=== PATIENT | female | born 1995 | race Caucasian/White ===

== ENCOUNTER 2017-09-04 14:19 | Emergency (ER) | payer MEDICAID, OTHER ==
[~2017-09-04] VITALS: Wt 74.0 kg
[~2017-09-04 14:19] MED LIST: NO MEDS; PRENAT PO
--- NOTE | 2017-09-04 14:25 | ERD ---
ER Documentation Chief Complaint Chief Complaint HPI This is a 22-year-old female with no past medical history that presents to the emergency department as a code green after she was in labor and delivery waiting room and received some upsetting news. She was told by family members that her sister's baby who she was delivering had during . The patient became very tearful fell to the floor but did not hit her head and started shaking uncontrollably. Isma mcarthur was called and the patient was medially brought down to the emergency department for further evaluation. She was complaining of difficulty in breathing. She states she is not currently , has no allergies her past medical history. She denied any suicidal homicidal thoughts or ideations ROS All systems reviewed and are negative except as per history of present illness. Medications Home Meds Reported Medications Multivit/Min/Fol Ac/Iron/Pren* ( S*) 1 Tab Tab, 1 TAB PO DAILY, TAB 07/23/15 [No Meds] No Conflict Check 11/04/12 Allergies Allergies: Coded Allergies: No Known Allergy (Unverified , 07/24/15) PMhx/Soc History of Surgery: No Anesthesia Reaction: No Hx Neurological Disorder: Yes (seizures as a child) Hx Respiratory Disorders: No Hx Cardiac Disorders: No Hx Psychiatric Problems: No Hx Miscellaneous Medical Probl: No Hx Alcohol Use: No Hx Substance Use: No Hx Tobacco Use: No Physical Exam Physical Exam Constitutional:Well-developed. Well-nourished. She shaking, hyperventilating and appeared in acute distress. HEENT:Normocephalic. Atraumatic.Pupils were equal round reactive to light. Moist mucous membranes.No tonsillar exudates. Neck: No nuchal rigidity. No lymphadenopathy. No posterior cervical spine tenderness or step-offs. Respiratory: Tachypneic. Not using accessory muscles of respiration.Lungs were clear to auscultation bilaterally. No rhonchi. No rales. No wheezing. Cardiovascular: Regular rate regular rhythm.No murmurs. No rubs were appreciated.S1, S2 normal. Distal pulses are palpable 2+ bilaterally. GI: Abdomen was soft. Nontender. Non Distended. No pulsatile abdominal masses or bruits. No rebound. No guarding. Bowel sounds were present and normal. Muscle skeletal: Full range of motion of both the upper and lower extremities bilaterally.Normal muscle tone.No assymetrical calf tenderness or swelling. Skin: No petechia, no purpura. No lesions on the palms or the soles of the feet. No maculopapular rash. NEURO: Patient was alert, awake, orientated x3.No facial droop. Gait observed and normal with no ataxia. Patient had no suicidal homicidal thoughts or ideations but was crying and verbal de-escalation was able to calm the patient down with no focal neurological deficits. Procedures/MDM Is a very pleasant 22-year-old female presented to the emergency department with occluded green and appeared to be having an acute grief reaction. The patient was hyperventilating tachypneic and received p.o. Ativan. Afterwards the tachypnea and hyperventilation completely resolved. She denied any suicidal homicidal thoughts or ideations. She spoke with her social media marketer and stated she felt comfortable being discharged home at this time. I did not feel is necessary to obtain any ancillary laboratory work as the patient had no changes in her mental status or physical exam findings to suggest severe electrolyte abnormalities. The patient was discharged home in fair condition. They were instructed to return to the emergency department at any time if there was any worsening of their condition. The patient stated they would follow up with their PCP in the next 24-48 hours to initiate a suitable medication regimen under the care of their PCP as well as to allow their PCP to monitor any drug reactions. The patient was discharged home with prescriptions after they gave informed consent to the new medication. They were also fully informed by myself on the adverse effects and adverse drug interactions in order to provide adequate safeguards to prevent possible adverse reactions to medications. Departure Diagnosis: Primary Impression: Grief reaction Condition: Fair CRISELDA TAMAYO Sep 04, 2017 14:25
[2017-09-04] MEDS ORDERED: LORAZEPAM 1 MG TAB PO ONE (14:30)
== END 2017-09-04 14:59 | disposition home or self-care (01) ==
LOC: E/R 14:19
DX: F43.20 Adjustment disorder, unspecified (principal)
CPT/HCPCS: Z7502; Z7610; 99283